=== PATIENT | male | born 1960 | race African-American/Black ===

== ENCOUNTER 2017-06-14 17:56 | Emergency (ER) | payer MEDICARE, OTHER ==
[~2017-06-14] VITALS: Ht 177.8 cm; Wt 77.1 kg
[~2017-06-14 17:56] MED LIST: CARB25TA; CARB25TA3 PO
[2017-06-14 19:16] LABS: Basophils # (auto) 0 uL; Basophils % (auto) 0.4 % (0.0-2.0); CONDITION Y; Eosinophils # (auto) 0 uL; Eosinophils % (auto) 0.6 % (0.0-7.0); Hematocrit 39.3 % (41.0-53.0); Hemoglobin 13.2 g/dL (13.5-17.5); Lymphocytes # (auto) 0.6 uL; Lymphocytes % (auto) 11.9 % (10.0-50.0); Mean Corpuscular Hemoglobin 30.5 pg (28.0-32.0); Mean Corpuscular Hgb Conc. 33.6 g/dL (32.0-36.0); Mean Corpuscular Volume 90.8 fL (80.0-100.0); Mean Platelet Volume 10.6 fL (7.4-10.4); Monocytes # (auto) 0.6 uL; Monocytes % (auto) 11.6 % (0.0-12.0); Neutrophils # (auto) 3.9 uL; Neutrophils % (auto) 75.5 % (37.0-80.0); Platelet Count (auto) 167 10^3/uL (140-450); Red Cell Distribution Width 14.6 % (11.6-16.0); White Blood Cell 5.2 10^3/uL (4.4-10.8)
[2017-06-14 19:37] LABS: Albumin 3.7 g/dL (3.4-5.0); Alkaline Phosphatase 68 U/L (45-117); Anion Gap 6 (5-15); Aspartate Aminotransferase 16 U/L (15-37); BUN/Creatinine Ratio 10.7; Bilirubin, Total 0.8 mg/dL (0.2-1.0); Blood Urea Nitrogen 14 mg/dL (7-18); Calcium 8.5 mg/dL (8.5-10.1); Carbon Dioxide 27 mmol/L (21-32); Chloride 110 mmol/L (98-107); GFR African American 73 mL/min; GFR Non-African American 61 mL/min; Glucose 95 mg/dL (74-106); Magnesium 2.7 mg/dL (1.6-2.6); Potassium 4.2 mmol/L (3.5-5.1); Sodium 143 mmol/L (136-145); Total Protein 7.1 g/dL (6.4-8.2)
[2017-06-14] MEDS ORDERED: SODIUM CHLORIDE 0.9% 1,000 ML IV ONE (20:20)
[2017-06-15 01:02] VITALS: BP 119/85
[2017-06-15] MEDS ORDERED: AMMONIA 0.33 ML INHALANT IN ONE (01:02)
== END 2017-06-15 00:50 | disposition home or self-care (01) ==
LOC: EDBD 17:56 → ER 18:00
DX: G20 Parkinson's disease (principal); F17.210 Nicotine dependence, cigarettes, uncomplicated; I10 Essential (primary) hypertension; Z59.0 Homelessness; E07.9 Disorder of thyroid, unspecified; W19.XXXA Unspecified fall, initial encounter; Y93.01 Activity, walking, marching and hiking; Y99.8 Other external cause status; Y92.89 Other specified places as the place of occurrence of the external cause
CPT/HCPCS: 36415; 70450; 71020; 80053; 83735; 84484; 85025; 93005; 94761; 96360; 96361

== ENCOUNTER 2017-06-15 09:35 | Emergency (ER) | payer MEDICARE ==
[~2017-06-15] VITALS: Ht 172.7 cm; Wt 77.1 kg
[2017-06-15 09:47] VITALS: BP 149/95
== END 2017-06-15 10:29 | disposition home or self-care (01) ==
LOC: ER 09:35 → EDBD 09:35 → ER 10:29
DX: G20 Parkinson's disease (principal); F17.210 Nicotine dependence, cigarettes, uncomplicated; I10 Essential (primary) hypertension; E07.89 Other specified disorders of thyroid; Z22.322 Carrier or suspected carrier of Methicillin resistant Staphylococcus aureus; Z59.0 Homelessness

== ENCOUNTER 2017-06-25 17:03 | Emergency (ER) | payer MEDICARE ==
[~2017-06-25] VITALS: Ht 182.9 cm; Wt 83.9 kg
[2017-06-25 17:13] VITALS: BP 175/100
== END 2017-06-25 18:45 | disposition home or self-care (01) ==
LOC: EDBD 17:03 → ER 17:05
DX: G20 Parkinson's disease (principal); I10 Essential (primary) hypertension; E07.89 Other specified disorders of thyroid; F17.210 Nicotine dependence, cigarettes, uncomplicated; Z59.0 Homelessness; Z22.322 Carrier or suspected carrier of Methicillin resistant Staphylococcus aureus; Z90.89 Acquired absence of other organs; Z76.0 Encounter for issue of repeat prescription

== ENCOUNTER 2017-07-28 17:57 | Emergency (ER) | payer MEDICARE ==
[~2017-07-28] VITALS: Ht 182.9 cm; Wt 82.1 kg
[2017-07-28 19:50] LABS: Basophils # (auto) 0 uL; Basophils % (auto) 0.1 % (0.0-2.0); CONDITION Y; Eosinophils # (auto) 0.1 uL; Eosinophils % (auto) 2.4 % (0.0-7.0); Hematocrit 40.8 % (41.0-53.0); Hemoglobin 13.6 g/dL (13.5-17.5); Lymphocytes % (auto) 19.6 % (10.0-50.0); Mean Corpuscular Hemoglobin 30.6 pg (28.0-32.0); Mean Corpuscular Hgb Conc. 33.5 g/dL (32.0-36.0); Mean Corpuscular Volume 91.3 fL (80.0-100.0); Mean Platelet Volume 10.6 fL (7.4-10.4); Monocytes # (auto) 0.2 uL; Monocytes % (auto) 4.6 % (0.0-12.0); Neutrophils # (auto) 3.9 uL; Neutrophils % (auto) 73.3 % (37.0-80.0); Platelet Count (auto) 171 10^3/uL (140-450); Red Cell Distribution Width 14.2 % (11.6-16.0); SUSPECT SEE PRINTOUT; White Blood Cell 5.3 10^3/uL (4.4-10.8)
[2017-07-28 20:02] LABS: Albumin 3.6 g/dL (3.4-5.0); Anion Gap 6 (5-15); BUN/Creatinine Ratio 14.1; Blood Urea Nitrogen 14 mg/dL (7-18); Calcium 8.2 mg/dL (8.5-10.1); Carbon Dioxide 28 mmol/L (21-32); Chloride 109 mmol/L (98-107); GFR African American 101 mL/min; GFR Non-African American 84 mL/min; Glucose 98 mg/dL (74-106); Sodium 143 mmol/L (136-145)
[2017-07-28 20:11] LABS: Alkaline Phosphatase 74 U/L (45-117); Aspartate Aminotransferase 13 U/L (15-37); Bilirubin, Total 0.4 mg/dL (0.2-1.0); Total Protein 6.8 g/dL (6.4-8.2)
[2017-07-29 03:11] VITALS: BP 143/116
== END 2017-07-29 03:15 | disposition home or self-care (01) ==
LOC: EDBD 17:57 → ER 18:09
DX: R53.1 Weakness (principal); I10 Essential (primary) hypertension; R07.89 Other chest pain; G20 Parkinson's disease; Z90.89 Acquired absence of other organs; F17.210 Nicotine dependence, cigarettes, uncomplicated; Z59.0 Homelessness
CPT/HCPCS: 36415; 70450; 72070; 72100; 80053; 84484; 85025; 93005

== ENCOUNTER 2017-08-07 00:33 | Emergency (ER) | payer MEDICARE ==
[~2017-08-07] VITALS: Ht 188 cm; Wt 83.9 kg
[2017-08-07 01:55] LABS: Basophils # (auto) 0.1 uL; Basophils % (auto) 0.9 % (0.0-2.0); Eosinophils # (auto) 0 uL; Eosinophils % (auto) 0.1 % (0.0-7.0); Hematocrit 41.2 % (41.0-53.0); Hemoglobin 13.9 g/dL (13.5-17.5); Lymphocytes # (auto) 0.6 uL; Lymphocytes % (auto) 9.6 % (10.0-50.0); Mean Corpuscular Hemoglobin 30.7 pg (28.0-32.0); Mean Corpuscular Hgb Conc. 33.8 g/dL (32.0-36.0); Mean Corpuscular Volume 90.9 fL (80.0-100.0); Mean Platelet Volume 10.1 fL (7.4-10.4); Monocytes # (auto) 0.5 uL; Neutrophils # (auto) 4.9 uL; Neutrophils % (auto) 80.4 % (37.0-80.0); Nucleated Red Blood Cells % 0.2 %; Platelet Count (auto) 139 10^3/uL (140-450); Red Cell Distribution Width 14.2 % (11.6-16.0); White Blood Cell 6.1 10^3/uL (4.4-10.8)
[2017-08-07 05:17] LABS: Acetaminophen < 2.0 ug/mL (10-30)
[2017-08-07 05:18] LABS: Anion Gap 1 (5-15); Carbon Dioxide 30 mmol/L (21-32); Chloride 108 mmol/L (98-107); Potassium 3.6 mmol/L (3.5-5.1); Salicylate 0.9 mg/dL (2.8-20.0); Sodium 139 mmol/L (136-145)
[2017-08-07 05:19] LABS: Alkaline Phosphatase 44 U/L (45-117); Aspartate Aminotransferase 18 U/L (15-37); BUN/Creatinine Ratio 8.3; Blood Urea Nitrogen 10 mg/dL (7-18); GFR African American 80 mL/min; GFR Non-African American 66 mL/min; Glucose 95 mg/dL (74-106)
[2017-08-07 05:20] LABS: Albumin 3.9 g/dL (3.4-5.0); Bilirubin, Total 0.7 mg/dL (0.2-1.0); Calcium 8.7 mg/dL (8.5-10.1); Total Protein 7.4 g/dL (6.4-8.2)
[2017-08-07 05:37] LABS: Urine Bilirubin Negative (Negative); Urine Blood Negative /uL (Negative); Urine Color Yellow (Yellow); Urine Glucose Normal (Normal); Urine Ketone 1+ (Negative); Urine Mucus FEW (None Seen); Urine Nitrite Negative (Negative); Urine RBC 2 /hpf (0 - 3); Urine Squamous Epithelial Cell FEW /hpf (<5); Urine Urobilinogen Normal (Negative)
[2017-08-07 07:26] VITALS: BP 149/87
== END 2017-08-07 07:54 | disposition home or self-care (01) ==
LOC: ER 00:39
DX: G20 Parkinson's disease (principal); I10 Essential (primary) hypertension; F03.90 Unspecified dementia, unspecified severity, without behavioral disturbance, psychotic disturbance, mood disturbance, and anxiety; F17.210 Nicotine dependence, cigarettes, uncomplicated; Z59.0 Homelessness
CPT/HCPCS: 36415; 80053; 80307; 80320; 80329; 81001; 85025; 93005; 94761